=== PATIENT | female | born 1945 ===

== ENCOUNTER 2019-04-10 16:50 | Inpatient (IN) | payer MEDICARE, OTHER, SELFPAY ==
[~2019-04-10 16:50] MED LIST: Iopamidol-370 76% 500 ML 1 ML ONE
[2019-04-10 17:40] LABS: #Basophils 0.1 thou/uL (0.0-0.2); #Lymphocytes 1.4 thou/uL (1.20-3.40); #Neutrophils 7.2 thou/uL (1.40-6.50); %Basophils 0.7 % (0.0-1.0); %Eosinophils 0.3 % (0.0-10.0); %Lymphocytes 14.7 % (21.0-51.0); %Monocytes 10.1 % (0.0-10.0); %Neutrophils 74.3 % (42.0-75.0); Hemoglobin 10.8 g/dL (12.0-16.0); Mean Corpuscular HGB CONC 31.7 g/dL (32.0-36.0); Mean Corpuscular Hemoglobin 28.6 pg (27.0-31.0); Mean Corpuscular Volume 90.2 fL (78.0-98.0); Mean Platelet Volume 7.5 fL (7.4-10.4); Platelet Count 333 thou/uL (130-400); RBC Distribution Width 14.3 % (11.5-14.5); Red Blood Cell (RBC) Count 3.79 mill/uL (4.20-5.40); White Blood Cell (WBC) Count 9.7 thou/uL (4.8-10.8)
[2019-04-10] MEDS ORDERED: cefTRIAXone\\ROCEPHIN 2 GM VIAL ONE (17:41)
[2019-04-10] MEDS ORDERED: Clindamycin/D5W 900 mg/50 ml Premix Bag ONE (17:41)
[2019-04-10] MEDS ORDERED: Sodium Chloride 0.9% 100 ML ONE (17:41)
[2019-04-10 17:51] LABS: ALT (SGPT) 9 U/L (8-55); AST (SGOT) 21 U/L (5-34); Albumin 3.6 g/dL (3.4-4.8); Alkaline Phosphatase 72 U/L (40-110); Anion Gap 16 mmol/L (10-20); BUN (Urea Nitrogen) 13 mg/dL (9.8-20.1); Bilirubin, Total 0.4 mg/dL (0.2-1.2); CRP (Inflammatory) 2.84 mg/dL (= or < 0.5); Calc. Creatinine Clearance 0 mL/min (70-130); Carbon Dioxide 22 mmol/L (23-31); Chloride 104 mmol/L (98-107); Estimated GFR-MDRD 48; Globulin 3.9 g/dL (2.4-3.5); Glucose 107 mg/dL (83-110); Magnesium 1.8 mg/dL (1.6-2.6); Potassium 3.8 mmol/L (3.5-5.1); Protein, Total 7.5 g/dL (6.0-8.3); Sodium 138 mmol/L (136-145)
--- NOTE | 2019-04-10 18:13 | RAD ---
Portable frontal chest radiograph: 04/10/2019 COMPARISON: 12/26/2004 HISTORY: Shortness of breath with cough FINDINGS: There is enlargement of the cardiac silhouette and pulmonary vascular congestion. There is dense opacity in the right perihilar region and right lung base with obscuration of the right heart border and right hemidiaphragm. IMPRESSION: Prominent pleural and parenchymal opacity in the right lung base suggest infectious pneum onitis/aspiration. Recommend short-term follow-up radiograph of the chest following treatment to document resolution.
[2019-04-10 18:14] LABS: CKMB 1.9 ng/mL (0-6.6)
--- NOTE | 2019-04-10 18:45 | CON ---
DATE OF CONSULTATION: 04/10/2019 CHIEF COMPLAINT: Right chest wall mass. HISTORY OF PRESENT ILLNESS: This is a 73-year-old female, who notes a history of a progressively enlarging open wound to her right lateral chest wall and axilla that been present for 6 months. She states that Dr. Russ had removed something benign on the right breast several years ago. However, this started as a small sore near her nipple. She has been neglecting this. Her family did know about it. They brought her to the hospital today for failure to thrive. She notes no significant pain in the area unless she touches it. She has noticed less urinations in the last few days, but no fevers or chills. She has no abdominal pain. She notes chronic swelling to her right arm. She has seen Dr. Hagen previously for NC and her primary care physician is Dr. Aureliano Correia, although she has seen neither of them recently. PAST MEDICAL HISTORY: Hypertension, CAD, NC, CHF. PAST SURGICAL HISTORY: Right breast. MEDICATIONS: Medicines taken daily. She takes lisinopril, hydrochlorothiazide, Coreg, statin, otherwise unknown. ALLERGIES: NO KNOWN DRUG ALLERGIES. SOCIAL HISTORY: She is a daily smoker. No alcohol or other drugs . REVIEW OF SYSTEMS: 10 system review of system is otherwise negative unless described above. PHYSICAL EXAMINATION: VITAL SIGNS: Her blood pressure is initially 100/60, but it drops in the 60 systolic as I was in the room, seeing her. HEENT: Sclerae are anicteric. Oropharynx clear. NECK: No lymphadenopathy. CHEST: Coarse breath sounds bilateral. HEART: Increased rate, regular rhythm without murmur. ABDOMEN: Soft, nontender. EXTREMITIES: 2+ pitting edema in bilateral lower extremities, 2+ pitting edema in right upper extremity which is swollen all the way to the axilla. BREAST: Reveals no left breast mass. No left axillary lymphadenopathy. There is an open large necrotic wound to the right chest wall. There are pockets of purulence, although none of these were deep. She is missing her nipples secondary to the open wound. This goes all the way into her right axilla, it feels hard, so true lymphadenopathy cannot be appreciated. LABORATORY DATA: White blood cell count is 9, hemoglobin 10, platelet count is 333. Sodium 138, potassium 3.8. LFTs normal. Albumin 3.6, creatinine 1.11. ASSESSMENT: 1. 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 2. Coronary artery disease. 3. Congestive heart failure. 4. History of myocardial infarction. 5. Tobacco abuse. PLAN: There is no urgent need for operative debridement of this. I recommended full sepsis workup by the primary team, admission to Medicine. I will perform core needle biopsy at the bedside in the next few days and then we will arrange for Oncology to see her as well. I recommended CT chest to further assess this axillary area and the thorax. Job ID: [id number]
--- NOTE | 2019-04-10 18:49 | CT ---
CT of the chest, abdomen, and pelvis: 04/10/2019 HISTORY: Pitting infection of the left chest TECHNIQUE: Axial CT imaging at 5 mm intervals from the thoracic inlet through the pubic symphysis wit h IV contrast. Coronal and sagittal reformatted imaging obtained. FINDINGS: There is a very large irregularly marginated lobulated ulcerating mass lesion associated wi th the right breast extending into the right axillary region, likely involving the lateral aspect of the right pectoralis musculature. This is likely on the basis of an aggressive ulcerated right tanner ast cancer. Superimposed infection cannot be excluded. Areas of soft tissue mass density along the margins of this ulcerated mass measure up to 5 cm in transverse dimension and up to 6.8 cm in AP dime nsion. There is a low-density mass within the left breast as well, best seen on image 19, measuring 2.1 cm in transverse dimension. No axillary lymphadenopathy is noted on the left. Mass is inseparable from the ulcerated lateral right breast mass extend into the right axillary region suggesting probable associated right axillary adenopathy. There is a moderate-sized right pleural effusion. Bilateral pulmonary parenchymal masses are noted. L eft upper lobe mass on image 11 measures 1.1 cm and on image 21 measures 2.1 cm. Mass within the lateral aspect of the left lower lobe on image 26 measures 2 cm. Right lower lobe demonstrates partia l consolidation/collapse. Right upper lobe pulmonary nodules are noted measuring up to 1.2 cm. Partial consolidation/collapse of right middle lobe noted. There is extensive atherosclerotic calcification of the coronary arteries as well as the aortic arch and descending thoracic aorta. The osseous structures of the chest demonstrate no discrete lytic or blastic bone lesion. No free intraperitoneal air or fluid is seen. Low-density lesion noted within left lobe of liver on image 46 measuring 5 mm, too small to character ize. Similar 8 mm hypodense lesion noted within left lobe of liver on image 59. The gallbladder, spleen, pancreas, adrenal glands, and kidneys demonstrate no acute findings. There is a nonspecific a drenal mass on the left measuring 1.2 cm. Subcentimeter hypodensities are noted within the left kidney, too small to characterize. There is diverticulosis of the sigmoid colon with no evidence for diverticulitis. No evidence for bow el obstruction. There is extensive atherosclerotic calcification of the abdominal aorta and its branches. No abdominal or pelvic lymphadenopathy. Osseous structures of abdomen/pelvis demonstrate multilevel prominent spinal degenerative change. No discrete lytic or blastic bone lesion. IMPRESSION: Huge irregularly marginated ulcerated mass of right breast extending into right axillary region suggesting right breast malignancy. Nonspecific left breast lesion. Moderate size right pleural effusion, suspicious for malignant effusion. Bilateral pulmonary nodules concerning for malig gerald. Whole body PET scan advised. Dr. Carlin made aware 6:45 PM 04/10/2019.
[2019-04-10] MEDS ORDERED: Ondansetron PF 4 MG/2 ML Vial IVP PRN (19:42)
--- NOTE | 2019-04-10 21:40 | HP ---
CHIEF COMPLAINT: "My children did not like the swelling and open wound in my breast." HISTORY OF PRESENT ILLNESS: A 73-year-old female with history of coronary artery disease and stent placement, hypertension, dyslipidemia, who presents to the emergency room with the above complaint. The patient notes for six months or longer, she has had an open wound on her right breast that drained clear or bloody fluid. She has had associated right arm swelling over the past month, bilateral leg swelling, and shortness of breath with exertion while walking over the past month. She does note weight loss over the past year estimates one size in her jeans. She states this has not been evaluated in the outpatient setting due to a lack of insurance. The patient denies any fevers, nausea, vomiting, or abdominal pain. She does report chills, an upset stomach last night. She discontinued her usual blood pressure medications, she states they make her blood pressure to go too low. \\ In the emergency room patient found to have an ulcerated right breast mass that was evaluated by General Surgery, as well as CT imaging, and concerning for malignancy with a right pleural effusion. She was treated with 2 g vancomycin, 900 mg clindamycin, 2 g of Rocephin, and approximately 2 L of normal saline, and hospitalist called for admission. ALLERGIES: NO KNOWN DRUG ALLERGIES. CURRENT MEDICATIONS: The patient denies taking anything over the past month, but states before that she was on, 1. Carvedilol 25 mg two tablets b.i.d. 2. Hydrochlorothiazide 25 mg daily. 3. Lisinopril 20 mg daily. 4. Rosuvastatin 20 mg at bedtime. PAST MEDICAL HISTORY: 1. Coronary artery disease with history of stent placement, followed by Dr. Hagen , by chart review history of MN and CHF. 2. Dyslipidemia. 3. Hypertension. PAST SURGICAL HISTORY: 1. Right breast lump removed that she reports was in the distant past and noncancerous. 2. Coronary stents. SOCIAL HISTORY: The patient uses 3 to 5 cigarettes per day, denies alcohol or drugs, she lives alone, and reports her children are her surrogate decision makers. She reports full code. REVIEW OF SYSTEMS: Positive for the right arm swelling, bilateral leg swelling, upset stomach last night, chills for 3 days. All remaining review of systems are reviewed and negative. PHYSICAL EXAMINATION: VITAL SIGNS: Blood pressure 124/87, pulse 101, respirations 28, sats 97% on room air, and temp 98.1. GENERAL: Awake, alert, responsive, in no apparent distress, easily short of breath with movement in the bed or with speaking. HEENT: Her pupils are equal and round. Oral mucosa is pink and moist. NECK: Supple, nontender. LYMPHATICS: No palpable cervical or supraclavicular lymphadenopathy. LUNGS: Clear to auscultation with decreased breath sounds at the right base. No audible wheezing, rhonchi, or rales. HEART: Normal S1, S2. Tachycardic with frequent PVCs on telemetry. No significant murmurs. ABDOMEN: Soft with present bowel sounds. Nontender and nondistended. EXTREMITIES: She has significant 3+ pitting edema in her bilateral lower extremities, significant edema in her right upper extremity. SKIN: Ulcerated lesion of the right breast that is currently packed with gauze. NEUROLOGIC: No focal deficits. PSYCH: Appears euthymic. VASCULAR: 2+ dorsalis pedis pulses. LABORATORY DATA: Labs are reviewed. CBC 9.7, 10.8, 34.2, 333. Renal panel 138, 3.8, 104, 22, 13, 1.1, 107. Lactic acid 3.7. LFTs; T bilirubin 0.4, AST 21, ALT 9, alkaline phosphatase 72, total protein 7.5 , and albumin 3.6. BNP 792. CRP 2.84. Troponin 0.084. EKG is personally reviewed sinus rhythm with Q-waves consistent with a history of an inferior infarct, abnormal R-wave progression. On telemetry, frequent PVCs. Chest x-ray shows prominent pleural and parenchymal opacity in the right lung base, suggesting infectious pneumonitis or aspiration. CT scan shows a huge irregularly marginated ulcerated mass of the right breast extending into the right axilla suggesting right malignancy, nonspecific left breast lesion, moderate right side pleural effusion suspicious for malignant effusion, bilateral pulmonary nodules concerning for malignancy. IMPRESSION: 1. Ulcerated mass of the right breast with extension into the axilla, pulmonary nodules, right pleural effusion, all concerning for malignancy/metastatic disease. 2. Possible sepsis with elevated heart rate, elevated respiratory rate, and open draining breast wound. 3. History of hypertension, off her medications. 4. Tachycardia with frequent premature ventricular contractions. 5. Anemia of uncertain chronicity. 6. Elevated lactic acid, likely secondary to #1. 7. Tobacco abuse. 8. Indeterminate troponin. 9. Right UE and bilateral LE edema. PLAN: 1. Admission to the hospital. 2. General Surgery has evaluated the patient with plan for biopsy over the next few days, as well as consultation for Oncology. 3. We will continue antibiotics with what was initiated in the emergency room, vancomycin, Rocephin, and clindamycin. 4. IV fluid hydration, low rate as the patient does have lower extremity and right upper extremity edema. 5. Heart healthy diet. 6. Due to the tachycardia, we will initiate a low dose carvedilol and titrate to effect. Monitor on telemetry. 7. The patient has been off aspirin for over a month. We will hold on initiating this for now. 8. Vancomycin dosing per pharmacy. 9. Nicotine replacement by patch. 10. Deep vein thrombosis prophylaxis. We will use heparin, discontinue if significant bleedling from chest. 11. GI prophylaxis, not indicated. The patient will be written for a diet. 12. Code status is full. Surrogate decision makers are the patient's children who are present in the room. 13. The patient is aware of the concern that this is malignancy, the plan of care, the coverage of antibiotics. Her and family demonstrate understanding and agree. There were no questions or further needs at the end of evaluation. She is at high risk given age and current presentation. Job ID: [id number] MTDD
[2019-04-11 00:29] VITALS: BMI 29.2
[2019-04-11 00:43] LABS: CKMB 2.2 ng/mL (0-6.6)
[2019-04-11] MEDS ORDERED: Clindamycin/D5W 900 mg/50 ml Premix Bag ONE ×2 (02:16→09:43)
[2019-04-11 02:19] LABS: Bacteria/HPF None Seen HPF (None Seen); Bilirubin Negative (Negative); Blood, Urine Negative (Negative); Clarity Clear (Clear); Glucose, Urine (Dipstick) Normal (Negative); Leukocyte Negative Leu/uL (Negative); Mucous/LPF Rare LPF (<2+); Nitrite Negative (Negative); Protein, Urine (Dipstick) 50 mg/dL (Neg-Trace); Squamous Epithelial 0-3 HPF (0-3); Urobilinogen Normal mg/dL (Less than 2); WBC/HPF 0-3 HPF (0-3)
[2019-04-11] MEDS: Clindamycin/D5W 900 MG in Premix Bag 1 BAG IVPB SCH ×3 (02:22→18:15)
[2019-04-11 03:19] LABS: #Eosinphils 0.1 thou/uL (0.0-0.7); #Lymphocytes 1.3 thou/uL (1.20-3.40); #Monocytes 0.9 thou/uL (0.11-0.59); %Basophils 0.4 % (0.0-1.0); %Eosinophils 1.2 % (0.0-10.0); %Lymphocytes 17.4 % (21.0-51.0); %Monocytes 12.3 % (0.0-10.0); %Neutrophils 68.6 % (42.0-75.0); Hemoglobin 9.9 g/dL (12.0-16.0); Mean Corpuscular HGB CONC 30.8 g/dL (32.0-36.0); Mean Corpuscular Hemoglobin 27.7 pg (27.0-31.0); Mean Corpuscular Volume 90.2 fL (78.0-98.0); Mean Platelet Volume 8.3 fL (7.4-10.4); Platelet Count 235 thou/uL (130-400); RBC Distribution Width 14.4 % (11.5-14.5); Red Blood Cell (RBC) Count 3.56 mill/uL (4.20-5.40); White Blood Cell (WBC) Count 7.3 thou/uL (4.8-10.8)
[2019-04-11 03:41] LABS: Anion Gap 16 mmol/L (10-20); BUN (Urea Nitrogen) 10 mg/dL (9.8-20.1); Calc. Creatinine Clearance 72 mL/min (70-130); Calcium 8.2 mg/dL (7.8-10.44); Carbon Dioxide 15 mmol/L (23-31); Chloride 112 mmol/L (98-107); Estimated GFR-MDRD 67; Glucose 102 mg/dL (83-110); Sodium 139 mmol/L (136-145)
--- NOTE | 2019-04-11 05:13 | PDOC.EVN ---
Event Note - Event Note Event Note: Adding an order for ultrasound of both legs and RUE to evaluate for DVT given the significant edema and new presumed dx of metastatic cancer.
--- NOTE | 2019-04-11 09:09 | ULT ---
EXAM: Bilateral lower extremity venous ultrasound HISTORY: Bilateral lower extremity pain and edema COMPARISON: None TECHNIQUE: Multiplanar grayscale and color Doppler images were obtained in a bilateral lower extremit y venous ultrasound. Spectral analysis of the Doppler waveforms were performed. FINDINGS: The bilateral common femoral vein, profunda femoral veins, superficial femoral veins, and p opliteal veins are normal in appearance without visible thrombus. These vessels demonstrate normal compression, flow, and augmentation. The bilateral posterior tibial veins and greater saphenous veins are patent without evidence of throm bus. There is a right Briones's cyst measuring 3.4 cm in greatest dimension. IMPRESSION: 1. No evidence of DVT. 2. Right Briones's cyst
--- NOTE | 2019-04-11 09:11 | ULT ---
EXAM: Right upper extremity venous ultrasound HISTORY: Right upper extremity edema COMPARISON: None TECHNIQUE: Multiplanar grayscale and color Doppler images were obtained in a right upper extremity ve nous ultrasound. Spectral analysis of the Doppler waveforms were performed. FINDINGS: The internal jugular vein demonstrates normal compression and flow without evidence of thrombus. The subclavian vein demonstrates normal flow and augmentation without evidence of thrombus. The axillary vein shows no evidence of thrombus. There appears to be nonocclusive thrombus in the bra chial vein The venous structures distal to the elbow are not well visualized. The cephalic and basilic veins are patent. There is an IV in the cephalic vein in the antecubital fos sa. IMPRESSION: Nonocclusive thrombus in the brachial vein
[2019-04-11] MEDS: Heparin 5,000 UNITS/ML VIAL SC SCH ×3 (09:16→20:42)
[2019-04-11] MEDS: Carvedilol 3.125 MG TAB PO SCH ×2 (09:30→18:12)
[2019-04-11] MEDS ORDERED: Furosemide 40 MG/4 ML VIAL SLOW IVP SCH (15:45)
[2019-04-11] MEDS: Sodium Chloride 0.9% 1,000 ML IV SCH ×2 (16:06)
[2019-04-11] MEDS: Nicotine 14 MG PATCH TD SCH ×2 (16:06→20:51)
--- NOTE | 2019-04-11 18:06 | PDOC.HOSPP ---
- Subjective Encounter Date: 04/11/19 Encounter Time: 18:06 Subjective: cc: f/u for sepsis, ulcerating right chest wall mass, shortness of breath subjective: patient is new to me. seen and examined at bedside in IMCU. offers no acute complaints. reports she was brought to hospital by son for shortness of breath. notes 6 month history of right chest wall lesion that worsened in past 2 months with ulceration and no pain, but burning. reports worsening RUE swelling for past 1 week. reports worsening bilateral lower extremity swelling for past several weeks. states she has been depressed because her employer terminated her without reason in 2018 and she was not aware of waiting period before starting medicare. notes dropping 1 pant size recently. noted bacteremia with gram positive and gram negative organisms. nurse reports normotensive blood pressures but decreased urine output with raines in place. reports NPO order for today was cancelled and no plans for surgical intervention today. - Objective Vital Signs & Weight: Weight Weight 164 lb 15.903 oz Result Diagrams: 04/11/19 03:13 04/11/19 03:13 Hospitalist ROS - Review of Systems Other: ROS: pertinent positive per subjective; remainder ROS negative - Medication Medications: Active Medications Generic Name Dose Route Start Last Admin Trade Name Freq PRN Reason Stop Dose Admin Carvedilol 3.125 mg 04/11/19 08:00 04/11/19 09:30 Coreg PO 3.125 mg BID-WM COLT Administration Heparin Sodium (Porcine) 5,000 units 04/10/19 21:00 04/11/19 16:06 Heparin SC Not Given BID COLT Clindamycin Phosphate/Dextrose 50 mls @ 100 mls/hr 04/11/19 02:00 04/11/19 09 :30 900 mg/ Device IVPB 50 mls 0200,1000,1800 COLT Administration Sodium Chloride 1,000 mls @ 50 mls/hr 04/10/19 19:45 04/11/19 16:06 Normal Saline 0.9% IV Not Given .Q20H COLT Nicotine 14 mg 04/10/19 21:00 04/11/19 16:06 Nicoderm Patch TD Not Given Q24HR COLT Sodium Chloride 10 ml 04/11/19 09:00 04/11/19 09:30 Flush - Normal Saline IVF 10 ml Q12HR COLT Administration - Exam General Appearance: awake alert Eye: PERRL, anicteric sclera ENT: normocephalic atraumatic, no oropharyngeal lesions Neck: supple Heart: RRR, no murmur Respiratory: tachypneic Respiratory - other findings: decreased inspiratory effort, decreased basilar breath sounds Gastrointestinal: soft, non-tender, non-distended Extremities: 2+ LE edema Extremities - other findings: RUE Pitting edema and lymphedema Skin - other findings: ulcerated malodrous mass on right chest wall with gauze/ drainage Neurological: cranial nerve grossly intact, normal sensation to touch, no weakness Musculoskeletal: normal tone, normal strength Psychiatric: normal affect, normal behavior, A&O x 3 Hosp A/P - Plan ulcerated right chest wall mass. concerning for metastatic breast cancer. await tissue biopsy for confirmation. surgeon consulted for possible debridement and biopsy. consult wound care. noted CT panscan concerning for possible metastatic lesions. sepsis due to bacteremia from ulcerated right chest wall mass. consult ID. blood cultures noted with GPC and Proteus spp. await speciation. started on IV vancomycin, IV rocehpin, and IV clindamycin. volume overload. possibly due to CHF exacerbation and lymphedema. stop IVF. elevated BNP noted. check TTE. start IV lasix. lower extremity dopplers negative for DVT. upper extremity with nonocclusive thrombus in brachial vein. moderate right pleural effusion. possibly malignant. patient may benefit from diagnostic thoracentesis. defer to pulmonary. Lactic acidosis resolved RUE nonocclusive brachial vein DVT. hold anticoagulation for now until surgical evaluation complete CAD with remote stenting. patient not on antiplatelet agent. history hypertension. blood pressures initially hypotensive but now normotensive. deconditioning. consult PT and OT. nicotine dependence. patient will require cessation counseling. DVT px: LMWH code status: full code Dispo: continue inpatient monitoring
[2019-04-11] MEDS: cefTRIAXone\\ROCEPHIN 2 GM in Sodium Chloride 0.9% 100 ML IVPB SCH (18:12)
[2019-04-11] MEDS: Vancomycin HCl 1.25 GM in Sodium Chloride 0.9% 250 ML 250 ML IVPB SCH (20:41)
[2019-04-11] MEDS: Acetaminophen 325 MG TAB PO PRN (22:47)
[2019-04-12] MEDS: Clindamycin/D5W 900 MG in Premix Bag 1 BAG IVPB SCH ×3 (01:49→17:50)
[2019-04-12 04:19] LABS: Eosinophils 1 % (0-10); Lymphocytes 13 % (21-51); MDiff Complete? YES; Mean Corpuscular HGB CONC 31.4 g/dL (32.0-36.0); Mean Corpuscular Hemoglobin 29.3 pg (27.0-31.0); Mean Corpuscular Volume 93.2 fL (78.0-98.0); Monocytes 11 % (0-10); Neutrophil 75 % (42-75); Platelet Count 213 thou/uL (130-400); Platelet Morphology Comment Appears Adequate; RBC Distribution Width 14.6 % (11.5-14.5); Red Blood Cell (RBC) Count 3.08 mill/uL (4.20-5.40); White Blood Cell (WBC) Count 6.6 thou/uL (4.8-10.8)
[2019-04-12 04:25] LABS: Anion Gap 13 mmol/L (10-20); BUN (Urea Nitrogen) 11 mg/dL (9.8-20.1); Calc. Creatinine Clearance 54 mL/min (70-130); Calcium 8.2 mg/dL (7.8-10.44); Carbon Dioxide 20 mmol/L (23-31); Chloride 107 mmol/L (98-107); Estimated GFR-MDRD 48; Glucose 102 mg/dL (83-110); Potassium 3.8 mmol/L (3.5-5.1); Sodium 136 mmol/L (136-145)
[2019-04-12] MEDS ORDERED: Lidocaine 1% w/Epinephrine 1:100K 20 ML VIAL ONE (07:55)
[2019-04-12] MEDS ORDERED: FLU VACC TS2019-20(65YR UP)/PF 180 MCG/0.5 ML SYRINGE IM ONE (09:00)
[2019-04-12] MEDS ORDERED: Prevnar 13-Val Conj/PF 0.5 ML SYRINGE IM ONE (09:00)
[2019-04-12] MEDS: Heparin 5,000 UNITS/ML VIAL SC SCH ×2 (09:26→21:04)
--- NOTE | 2019-04-12 11:32 | PDOC.HOSPP ---
- Subjective Encounter Date: 04/12/19 Encounter Time: 11:45 Subjective: cc: f/u for ulcerating right chest wall mass, shortness of breath subjective: Patient seen and examined at bedside this morning. Son and daughter at bedside. Patient feels better and notes for lower extremity edema and right upper extremity edema is improved. Feels short of breath but improved when sitting upright. Offers no other acute complaints. Nursing staff notes no acute events. NOTED: 1 of 2 blood cultures CONS, breast culture proteus spp. - Objective Vital Signs & Weight: Vital Signs (12 hours) Temp Pulse Ox 04/12/19 10:25 97.3 F L 04/12/19 08:00 99 04/12/19 07:16 97.7 F 04/12/19 03:19 97.2 F L 04/11/19 23:34 97.6 F Weight Weight 164 lb 15.903 oz Most Recent Monitor Data Heart Rate from ECG 81 NIBP 75/41 NIBP BP-Mean 52 Respiration from ECG 27 SpO2 98 I&O: 04/11/19 04/12/19 04/13/19 06:59 06:59 06:59 Intake Total 1625 Output Total 1750 Balance -125 Result Diagrams: 04/12/19 03:15 04/12/19 03:15 Hospitalist ROS - Review of Systems Other: Pertinent positives noted as per subjective. Remainder ROS negative. - Medication Medications: Active Medications Generic Name Dose Route Start Last Admin Trade Name Freq PRN Reason Stop Dose Admin Acetaminophen 650 mg 04/10/19 19:42 04/11/19 22:47 Tylenol PO 650 mg Q6H PRN Administration Headache/Fever/Mild Pain (1-3) Carvedilol 3.125 mg 04/11/19 08:00 04/11/19 18:12 Coreg PO 3.125 mg BID-WM COLT Administration Heparin Sodium (Porcine) 5,000 units 04/10/19 21:00 04/12/19 09:26 Heparin SC Not Given BID COLT Ceftriaxone Sodium 2 gm/ 100 mls @ 200 mls/hr 04/11/19 17:00 04/11/19 18:12 Sodium Chloride IVPB 100 mls 1700 COLT Administration Clindamycin Phosphate/Dextrose 50 mls @ 100 mls/hr 04/11/19 02:00 04/12/19 09 :24 900 mg/ Device IVPB 50 mls 0200,1000,1800 COLT Administration Vancomycin HCl 1.25 gm/ Sodium 250 mls @ 166.667 mls/hr 04/11/19 20:00 20:41 Chloride IVPB 250 mls Q24HR@2000 COLT Administration Nicotine 14 mg 04/10/19 21:00 04/11/19 20:51 Nicoderm Patch TD Not Given Q24HR COLT Sodium Chloride 10 ml 04/11/19 09:00 04/12/19 09:29 Flush - Normal Saline IVF 10 ml Q12HR COLT Administration Hosp A/P - Plan MICROBIOLOGY: 1 of 2 blood cultures coag negative staph Breast culture: Proteus species ASSESSMENT AND PLAN ulcerated right chest wall mass. concerning for metastatic breast cancer. Status post surgical biopsy at bedside by surgeon. Status post diagnostic thoracentesis by pulmonology. Await pathology. Continue wound care. noted CT panscan concerning for possible metastatic lesions. possible sepsis due to inflammatory chest wall lesion. ID consulted. 1 of 2 blood cultures suggest coag negative staph suspected contaminant. Breast culture suggest Proteus species unclear true infectious etiology. patient was started on IV rocephin, clindamycin, and vancomycin in ER and continue for now. volume overload. possibly due to CHF exacerbation and lymphedema. Await TTE. Continue IV lasix 40 mg daily. discontinue raines catheter soon once more mobile. lower extremity dopplers negative for DVT. upper extremity with nonocclusive thrombus in brachial vein. possibly hypoxic respiratory failure due to moderate right pleural effusion and right chest wall mass with suspected metastatic lung lesions. pulmonology following. continue prn oxygen nasal canula. moderate right pleural effusion. possibly malignant. s/p diagnostic thoracentesis 04/12/19 by pulmonary. Lactic acidosis resolved. RUE nonocclusive brachial vein DVT. hold anticoagulation for now until surgical evaluation complete CAD with remote stenting. patient not on antiplatelet agent. history hypertension. blood pressures initially hypotensive but now normotensive. deconditioning. consult PT and OT. start oral dietary supplements. nicotine dependence. patient will require cessation counseling. DVT px: LMWH code status: full code Dispo: downgrade to telemetry if okay with consultants. consult case management for patient resources on outpatient assistance.
[2019-04-12] MEDS: Carvedilol 3.125 MG TAB PO SCH ×2 (12:51→17:48)
[2019-04-12] MEDS: HYDROcodone/Acetaminophen 7.5/325 mg Tablet PO PRN (14:23)
--- NOTE | 2019-04-12 14:48 | PRG ---
DATE OF SERVICE: 04/12/2019 SUBJECTIVE: Ms. Box still has pretty severe shortness of breath. Her CT results are noted. OBJECTIVE: VITAL SIGNS: O2 saturation is 98%. Her respiratory rate is 30, heart rate 92, blood pressure 97/56. CHEST: Coarse breath sounds, decreased on the right. HEART: Regular rate. ABDOMEN: Soft, nontender. BREASTS: Her right breast exam is unchanged with inflammatory breast cancer. Extensive right axillary hardness noted as well as right upper extremity swelling. IMAGING DATA: Ultrasound of right upper extremity revealed a brachial vein clot. CT scan shows effusion on the right, pneumonia on the right. ASSESSMENT: 1. Inflammatory breast cancer, neglected, now with large open wound. I performed core biopsy at the bedside today. Await those results. 2. Right-sided pleural effusion with extensive shortness of breath, requiring her to sit up straight in bed. PLAN: I have discussed with Dr. Iyer, who reviewed her CT scan with me. He will see her and offer recommendations for that effusion. I going to be out of town for the next week. I would recommend consulting Oncology as an inpatient once the pathology results come back from my biopsy. Because of her previous neglecting of this mass and difficulty getting back to the hospital and to outpatient appointments, likely should have some sort of plan in place before she is discharged. Dr. Pond has a round for me for the rest of the week for any issues. Until then, she is just getting wet-to-dry dressing changes on this wound daily. Job ID: [id number]
[2019-04-12 14:50] LABS: Fluid, pH - Pleural Fld 7.41 (7.60 - 7.66)
--- NOTE | 2019-04-12 15:09 | CON ---
DATE OF CONSULTATION: 04/12/2019 SERVICE: Pulmonary Medicine. REASON FOR CONSULTATION: Pleural effusion. HISTORY OF PRESENT ILLNESS: The patient is a very pleasant 73-year-old white female with past medical history significant for suspected breast cancer. The patient tends to keep things to herself. She did not tell her family about a fungating mass coming out of the breast. Ultimately, she presented to the emergency department. There was concern for infection. She was actually put in the hospital for that. That being said, became increasingly apparent that this mass was a fungating lesion. She is being treated for cellulitis/pneumonia. She has had increasing shortness of breath over a period of time. She has a cough, but not bringing up any sputum. Otherwise, there has been no change to her condition. PAST MEDICAL HISTORY: 1. Breast cancer, likely metastatic. 2. Coronary artery disease. 3. Hypertension. 4. Dyslipidemia. PAST SURGICAL HISTORY: 1. Right breast lumpectomy, remote. 2. Breast biopsy. 3. Percutaneous coronary intervention. SOCIAL HISTORY: She smokes a quarter pack of cigarettes on a daily basis, but prior to that, smoked a lot more. Denies any alcohol or illicit drug use. She has no exposure to chemicals, dust, asbestos, or tuberculosis. FAMILY HISTORY: Noncontributory. ALLERGIES: NO KNOWN DRUG ALLERGIES. MEDICATIONS: List of her inpatient medications was reviewed. No specific updates were made at this time. REVIEW OF SYSTEMS: General; head, ears, eyes, nose, throat; cardiovascular; respiratory; GI; ; musculoskeletal; neurologic; and skin are negative except as mentioned is the HPI. PHYSICAL EXAMINATION: VITAL SIGNS: Afebrile, pulse 92, blood pressure 97/56, respirations 30, saturation 98%, currently on 2 L nasal cannula. GENERAL: The patient is awake and alert, in no apparent distress. LUNGS: Decent air entry. Dependently, there are rhonchi on the right. There is decreased air entry there. No prolonged expiratory phase or wheezing appreciated. HEART: Normal rate. Regular. ABDOMEN: Soft, nontender, and nondistended. Bowel sounds are positive. MUSCULOSKELETAL: No cyanosis or clubbing. There is diffuse 1 to 2+ pitting throughout. NEUROLOGIC: Grossly nonfocal. LABORATORY DATA: WBC 6.6, hemoglobin 9.0 and downtrending, and platelets 213, 000. Creatinine 1.11 and up trending. Basic metabolic profile is otherwise unremarkable. Troponin is increasing to 0.07, CK-MB remains low. Lactate was originally 3.7 , but downtrended to 2.0. Liver function studies are unremarkable. Her BNP is elevated at 792. Urinalysis is unremarkable. Right breast is growing Proteus mirabilis, which is a pansensitive organism. She has 1/4 blood cultures growing coag- negative Staph, likely representing a contaminant. Urine culture is negative. IMAGING STUDIES: Ultrasound of bilateral lower extremities demonstrates no evidence of a pulmonary embolism. Right-sided Briones cyst is present. Vascular ultrasound demonstrates nonocclusive thrombus in the brachial vein. CT of the chest, abdomen, and pelvis demonstrates no evidence of a pulmonary embolism. There is an infiltrate in the right lower lobe with likely atelectasis of most of the right lower lobe. That being said, air bronchograms are appreciated. There is a moderate-sized pleural effusion on the right. Breast mass is present on the left. ASSESSMENT: 1. Pleural effusion, not otherwise specified. 2. Acute hypoxic respiratory failure. 3. Community-acquired pneumonia. 4. Breast mass, likely representing metastatic breast cancer. DISCUSSION AND PLAN: We will proceed with thoracentesis. This is going to be for both diagnostic and therapeutic purposes. We will see whether or not there is an infection that is based on whether or not cancer cells exist. Pulmonary will continue to follow while the patient remains inhouse for the time being. Current antibiotics should cover what we need to for a possible lung infection. 70 minutes have been devoted to this patient in various activities. I personally reviewed all imaging studies and laboratory data noted within this document. For fifty percent of this time, I was interacting with the patient at the bedside or coordinating care with the care team. For the remainder of the time I was immediately available to the patient in the hospital unit. Job ID: [id number] MTDD
[2019-04-12] MEDS ORDERED: Furosemide 40 MG/4 ML VIAL SLOW IVP SCH ×2 (15:15→17:45)
[2019-04-12 15:34] LABS: Pleural Fluid, Protein 3.7 g/dL
[2019-04-12 15:35] LABS: RBC Count-Automated (BF) 798 /cumm; WBC/Nucleated-Auto (BF) 3635 uL
[2019-04-12 15:46] LABS: BF Color Yellow; Body Fluid Source Pleural Fluid; Clarity Hazy (Clear); Tube # 3
[2019-04-12 15:49] LABS: BF Segmented Neutrophils 4 %; Cell Count Non Hematic 4 %; Lymphocytes 90 %
--- NOTE | 2019-04-12 16:44 | OP ---
DATE OF PROCEDURE: 04/12/2019 SERVICE: Pulmonary Medicine. PROCEDURE: Right-sided ultrasound-guided thoracentesis. CONSENT: The risks and benefits of the procedure were discussed with the patient. All questions were answered and alternative options explained. MEDICATIONS USED: Lidocaine 1% without epinephrine, 8 mL. PREOPERATIVE DIAGNOSES: 1. Acute hypoxic respiratory failure. 2. Pleural effusion, not otherwise specified. 3. Community-acquired pneumonia/pulmonary infiltrate. POSTPROCEDURE DIAGNOSES: 1. Acute hypoxic respiratory failure. 2. Pleural effusion, not otherwise specified. 3. Community-acquired pneumonia/pulmonary infiltrate. DESCRIPTION OF PROCEDURE: A time-out was performed by the procedure team and patient. The patient was positively identified using name and date of . The procedure site was marked. Vital sign monitoring was accomplished by noninvasive hemodynamic monitoring, pulse oximetry, and telemetry. In the seated position, the right posterior hemothorax was examined using ultrasound probe. The diaphragm and pleural fluid were easily identified. The skin was prepped and draped in sterile fashion and anesthetized with 1% lidocaine without epinephrine. A finder needle was inserted in the pleural space with return of minimally opaque yellow fluid. A pleural drainage catheter was inserted in the same location and a total quantity of 1000 mL of pleural fluid was withdrawn by syringe pump technique. A sample was sent for analysis. Evacuation of fluid was terminated because the because I arrived at minus 20 cm of pleural fluid. At the end of the procedure, the intact catheter was withdrawn on exhalation and a sterile dressing was applied. She had stable vitals throughout the entire procedure. ESTIMATED BLOOD LOSS: Negligible. COMPLICATIONS: None. Job ID: [id number]
--- NOTE | 2019-04-12 17:33 | CON ---
DATE OF CONSULTATION: 04/12/2019 REASON FOR CONSULTATION: Inflammatory necrotic mass, right breast with pleural effusion. HISTORY OF PRESENT ILLNESS: A 73-year-old history of chronic smoking, hyperlipidemia, and hypertension, who has had a progressively worsening necrotic right breast and axillary mass, which she noticed for the past 6 months at least. The patient lives by herself close to the hospital and family members are in another city and she never disclosed to them this new finding and pretty much let the progress, was not planning to go to medical care for it until the family came to visit during [place] and convinced her to go see a doctor. She was brought to the emergency room, has been admitted. Dr. Mckeon did a biopsy of the likely malignancy. Dr. Iyre has removed some pleural fluid for assessment. She is basically comfortable in bed at this time and denies any headaches, visual symptoms, sore throat, odynophagia, or dysphagia. No back pain. Mild dyspnea. Mild pain at the site of the mass. No abdominal pain or diarrhea. No genitourinary symptoms. No joint symptoms or neurological symptoms. PAST MEDICAL HISTORY: Hyperlipidemia and hypertension. She has a history of lumpectomy many years ago, cardiac stent, tonsillectomy, and depression. SOCIAL HISTORY: Current smoker. Lives alone in [place]. ALLERGIES: NONE. CURRENT MEDICATIONS: 1. Coreg. 2. Ceftriaxone. 3. Clindamycin. 4. Lasix. 5. Heparin. 6. Zofran. 7. Vancomycin. ALLERGY HISTORY: Negative. PHYSICAL EXAMINATION: VITAL SIGNS: T-max 98.4, blood pressure 97/56, pulse 92, respirations 24, pulse 92, and O2 saturation 98. SKIN: Shows the necrotic mass in the right breast axillary region, which seems to be penetrating into the soft tissues, it is very close probably to the vascular structures. There is a rim of infiltrated skin around this region, which likely represented the advancing edges of the tumor. The base of this area has some regions of necrosis, others with granulation tissue. The patient has a peripheral IV access and is voiding with an indwelling Dobbins catheter. No other areas of lymphadenopathy are noted. HEENT: Ocular movements are conjugate. Sclerae white. Pupils are 2 mm and reactive. Nasal passages are normal. Ear exam normal. Oral cavity is not remarkable. NECK: Supple. No jugular vein distention. LUNGS: With diminished breath sounds on the right side. HEART: S1 and S2. Regular rate. ABDOMEN: Soft, mild wheezing in the dependent areas. ABDOMEN: Soft, not distended or tender. No ascites. No bladder distention. EXTREMITIES: No joint inflammatory activity. Lymphedema in the lower extremities and lymphedema in the right upper extremity with also likely edema from venous obstruction by the mass or plus-minus thrombus. Pulses 1+ in dorsalis pedis. She moves extremities with some limitation in right upper extremity from the inflammatory mass. GENERAL: She is awake and oriented, follows commands. LABORATORY DATA: White cell count 9.7 and now 6.6, hemoglobin 10.8, MCV 90, and platelets 333 with 74% neutrophils and 14% lymphocytes. Chemistry with a creatinine of 0.8 and sodium 139. Liver profile normal. Albumin 3.6 and total protein 7.5. CRP 2.8 and BNP 792. Urinalysis, 0 to 3 wbc's and 50 protein. Pleural fluid, pH was 7.41. I have one set of blood cultures with coagulase-negative Staph likely contaminant and there is a swab from the surface of the breast lesion with Proteus mirabilis, likely a surface contaminant. We have a chest, abdomen, and pelvis CT with marginated ulcerated mass right breast extending into the right axillary region, pleural effusion moderately-sized, bilateral pulmonary nodules likely metastatic malignancy. The abdominal compartment with low-density lesion in the left lobe of the liver, too small to characterize. ASSESSMENT: Progressive necrotic right breast mass lesion. There is associated likely metastatic lesions to both lungs. There is no evidence of deep vein thrombosis in the lower extremities and the brachial vein has a nonocclusive thrombus noted. DISCUSSION: This represents an inflammatory breast malignancy with metastases to lungs at least and I do not think that there is an evidence to suggest a superimposed infectious process that needs to be treated with antimicrobials at this time. Awaiting on the final results of the pleural fluid analysis, which probably will demonstrate malignant spread to the pleural space on right side. Job ID: [id number] MTDD
[2019-04-12] MEDS: cefTRIAXone\\ROCEPHIN 2 GM in Sodium Chloride 0.9% 100 ML IVPB SCH (17:44)
[2019-04-12] MEDS: Vancomycin HCl 1.25 GM in Sodium Chloride 0.9% 250 ML 250 ML IVPB SCH (20:46)
[2019-04-12 20:52] LABS: Vancomycin, Trough 14.1 ug/mL
[2019-04-12] MEDS: Nicotine 14 MG PATCH TD SCH (20:59)
[2019-04-12] MEDS: Acetaminophen 325 MG TAB PO PRN (22:58)
[2019-04-13] MEDS: Clindamycin/D5W 900 MG in Premix Bag 1 BAG IVPB SCH ×3 (02:35→22:30)
[2019-04-13] MEDS: Carvedilol 3.125 MG TAB PO SCH ×2 (08:30→18:51)
[2019-04-13 09:28] LABS: #Basophils 0.1 thou/uL (0.0-0.2); #Eosinphils 0.1 thou/uL (0.0-0.7); #Lymphocytes 1.1 thou/uL (1.20-3.40); #Monocytes 0.7 thou/uL (0.11-0.59); #Neutrophils 4.5 thou/uL (1.40-6.50); %Basophils 0.8 % (0.0-1.0); %Eosinophils 2.1 % (0.0-10.0); %Lymphocytes 17.1 % (21.0-51.0); %Monocytes 10.5 % (0.0-10.0); %Neutrophils 69.4 % (42.0-75.0); Hemoglobin 9.5 g/dL (12.0-16.0); Mean Corpuscular HGB CONC 29.6 g/dL (32.0-36.0); Mean Corpuscular Hemoglobin 27.9 pg (27.0-31.0); Mean Corpuscular Volume 94.2 fL (78.0-98.0); Mean Platelet Volume 8.2 fL (7.4-10.4); Platelet Count 241 thou/uL (130-400); RBC Distribution Width 14.6 % (11.5-14.5); White Blood Cell (WBC) Count 6.5 thou/uL (4.8-10.8)
[2019-04-13] MEDS ORDERED: Hydrocortisone Sod Succ/PF 250 mg/2 ml Vial SLOW IVP SCH (09:30)
[2019-04-13] MEDS: Heparin 5,000 UNITS/ML VIAL SC SCH ×2 (09:36→22:44)
[2019-04-13 09:46] LABS: Anion Gap 9 mmol/L (10-20); BUN (Urea Nitrogen) 12 mg/dL (9.8-20.1); Calc. Creatinine Clearance 66 mL/min (70-130); Calcium 8.1 mg/dL (7.8-10.44); Carbon Dioxide 26 mmol/L (23-31); Chloride 105 mmol/L (98-107); Estimated GFR-MDRD 61; Glucose 100 mg/dL (83-110); Magnesium 1.8 mg/dL (1.6-2.6); Phosphorus 3.5 mg/dL (2.3-4.7); Potassium 3.4 mmol/L (3.5-5.1); Sodium 137 mmol/L (136-145)
[2019-04-13 09:51] LABS: MDiff Complete? YES; Platelet Morphology Comment Appears Adequate; Polychromasia SLIGHT = 2-3 cells (100X) (0-2/hpf)
[2019-04-13] MEDS ORDERED: Hydrocortisone Sod Succ/PF 100 mg/2 ml Vial IVP SCH (10:00)
[2019-04-13] MEDS: Furosemide 40 MG/4 ML VIAL SLOW IVP SCH (10:36)
--- NOTE | 2019-04-13 14:43 | PDOC.EVN ---
Event Note - Event Note Event Note: [id number] Progress
--- NOTE | 2019-04-13 15:22 | PRG ---
DATE OF SERVICE: 04/13/2019 The patient is being followed for ulcerative right chest wall mass, shortness of breath, sepsis, and bacteremia. SUBJECTIVE: The patient is seen at bedside. Son also at the bedside. The patient's blood pressure continues to fluctuate, but remains on the low side. We have to hold blood pressure medicine and Lasix earlier today because of low blood pressure. Other than that, patient overall is feeling better, but feels weak. PHYSICAL EXAMINATION: VITAL SIGNS: Blood pressure is 108/66, pulse is 93, respiratory rate 20, temperature 96.5, pulse oximetry 98%. HEAD AND NECK: Normocephalic, atraumatic. NECK: Supple. CHEST: Few bibasilar crackles. HEART: S1, S2. Regular. ABDOMEN: Soft, nontender, bowel sounds present. NEUROLOGIC: Awake, alert, oriented. PSYCH: Unable to assess. EXTREMITIES: No clubbing, no cyanosis. REVIEW OF SYSTEMS: Review of 14 systems negative except what is mentioned in history of present illness. MEDICATIONS: Reviewed. LABORATORY DATA: Sodium 137, potassium 3.4, BUN is 12, creatinine 0.9. WBC 6.5, hemoglobin 9.5, platelets 241. ASSESSMENT AND PLAN: 1. Ulcerated right chest wall mass concerning for metastatic breast cancer, status post surgical biopsy, status post diagnostic thoracentesis by Pulmonary, awaiting pathology. 2. Possible sepsis. 3. Breast culture suggests Proteus species. The patient currently is on IV Rocephin, also she is receiving clindamycin and vancomycin, Infectious Disease consulted. 4. Congestive heart failure, possibly exacerbation, the patient is on Lasix, but it has been on hold today because of low blood pressure. 5. , continue p.r.n. oxygen nasal cannula. 6. Moderate right pleural effusion, possible malignant, status post diagnostic thoracentesis, awaiting pathology. 7. Lactic acidosis, resolved. 8. Right upper extremity nonocclusive brachial vein deep venous thrombosis. Anticoagulation is being hold until surgical evaluation is completed. 9. Coronary artery disease with stenting. 10. History of hypertension, hold blood pressure medications because the patient is being hypotensive. 11. Decondition. Consult PT and OT. 12. DVT prophylaxis appropriate. 13. Full code. DISPOSITION: Job ID: [id number]
[2019-04-13] MEDS: cefTRIAXone\\ROCEPHIN 2 GM in Sodium Chloride 0.9% 100 ML IVPB SCH (18:44)
[2019-04-13] MEDS ORDERED: Furosemide 20 MG/2 ML VIAL SLOW IVP SCH ×2 (20:30→20:45)
[2019-04-13] MEDS: Nicotine 14 MG PATCH TD SCH (22:31)
[2019-04-13] MEDS: Vancomycin HCl 1.25 GM in Sodium Chloride 0.9% 250 ML 250 ML IVPB SCH (22:43)
[2019-04-13] MEDS: Acetaminophen 325 MG TAB PO PRN (22:59)
[2019-04-14] MEDS: Clindamycin/D5W 900 MG in Premix Bag 1 BAG IVPB SCH ×3 (02:28→17:07)
--- NOTE | 2019-04-14 03:11 | CON ---
DATE OF CONSULTATION: INDICATION FOR CONSULTATION: This is a 73-year-old female, well known to me. I have followed her for many years. She has a history of underlying coronary artery disease, has undergone angioplasty and stent placement to the right coronary artery in 2000 with a 3.0 x 23 mm stent due to subtotal stenosis of the right coronary artery. At that time, she was found to have plaque in the other arteries and also had a severe decrease in left ventricular systolic function with ejection fraction approximately 20%. She has been admitted at this time due to a fungating right breast mass, which appears to be a malignancy, is somewhat suspicious also for being metastatic, for which she had an echocardiogram performed, which shows ejection fraction of 25% to 30% with moderate to severe left atrial dilatation and severe mitral valve regurgitation. These are not new findings. This is a chronic situation for this lady and we have actually had discussions on multiple occasions about possible AICD implant. She was opposed to this and has not had an implantation. She also has had discussions about starting her on Entresto or other medications for her cardiomyopathy and we tried to get her into a program, which would have been paid for by the company, but she said she was unable to have time to come to the office visits and she did not start the Entresto. She has continued to smoke unfortunately and still continues to smoke half a pack a day. Each time she has been seen in the office, we have advised her to stop smoking, but this was to no avail. She did undergo her last echocardiogram in the office in 2017 in October, which again showed an ejection fraction about 30% with moderate to severe mitral valve regurgitation and also left ventricular dilatation. She did have akinesis of the inferior posterior grover and at that time she again refused to undergo AICD implant. She has had an EKG, which showed normal sinus rhythm. She has had PVCs in the past and she has had an interventricular conduction abnormality. Her last cardiac catheterization was in 2008, at which time, the stent in the right coronary artery remained patent and she continued to have plaque in the left circumflex and the left anterior descending artery, but no flow-limiting disease is otherwise noted and ejection fraction at that time by cardiac catheterization was again 25% to 30%. At this time, she denies any chest discomfort as far as cardiac is concerned, but she does have some shortness of breath. She is feeling better now that she has had a thoracentesis and approximately 1 L of fluid apparently was drained off. PAST MEDICAL HISTORY: Significant for the coronary artery disease, cardiomyopathy. She has hypertension, hypercholesterolemia. She has had a tonsillectomy. She has had a tendon transplant on the left foot. She has had bilateral tubal ligations. She has had angioplasty and stent placement to the right coronary artery. ALLERGIES: NONE. MEDICATIONS: Prior to admission, I think she was not taking most of them. She was taking some of the diuretics, however, but had not been taking all of her medications. I believe she had been taking the Coreg. She was on Coreg 25 mg b.i.d. and also Crestor 20 mg a day for her hypercholesterolemia, and the Coreg was for cardiomyopathy, but she had stopped taking the Coreg due to hypotension and not feeling well, most likely due to decrease in the left ventricular systolic function and also possible underlying ischemia as well as progression of the pleural effusion. Her medications at this time include, 1. Rocephin. 2. Clindamycin. 3. Vancomycin. 4. She has a Nicoderm patch. 5. She is on Coreg 3.125 mg. 6. She is on furosemide 40 mg IV as well as subcu heparin. 7. She has been placed on p.r.n. medications. FAMILY HISTORY: Noncontributory to her admission at this time. SOCIAL HISTORY: She continues to smoke. There is no significant alcohol use. She recently stopped working for [employer] company here in [facility]. REVIEW OF SYSTEMS: GENERAL: She says that she has lost some weight. HEENT: She has no visual or HEENT complaints or changes. PULMONARY: She continues to have shortness of breath, which is an ongoing problem. CARDIOVASCULAR: She denied any chest pain or palpitations. GI: She had no nausea, vomiting, or diarrhea. She did have some loose stools a couple of days ago, but nothing significant. : She does not have any complaints of dysuria, polyuria, or hematuria unless she takes her Lasix, which then causes her to have increased urine output except for the last day before admission apparently the urine output had decreased, but she was not eating or drinking appropriately and most likely was somewhat dehydrated. MUSCULOSKELETAL: She continues to have ongoing edema. Mainly, she sleeps in a recliner at night and does not lie down and most of the time the legs are either hanging down or certainly not above the level of the heart. NEUROLOGIC: She denied any complaints of seizure or syncope. PHYSICAL EXAMINATION: GENERAL: Reveals a well-developed, well-nourished female, somewhat overweight, but in no acute distress. She is very pleasant. VITAL SIGNS: Her blood pressure was 114/75, respiratory rate is about 18 to 26, O2 saturations about 98% on 2 L, heart rate is 78 to 90 and shows a sinus rhythm. HEENT: Shows head to be normocephalic and atraumatic. Carotid pulses are present. I do not hear any bruits. CHEST: Has decreased breath sounds in the right base as would be expected from a pleural effusion. Otherwise, I do not hear rales or rhonchi. CARDIOVASCULAR: Reveals a regular rate at this time with occasional ectopy. She does have a systolic murmur at the apex. I did not hear any significant murmur at the lower sternal border. She also has a systolic murmur of the aortic area. ABDOMEN: Shows obesity with positive bowel sounds. She has a surgical dressing over the right breast area, most likely after the biopsy of the breast mass, I did not evaluate this, please refer to the other notes. EXTREMITIES: Lower extremities show 2 to 3+ lower extremity edema, the left being greater than the right. Pedal pulses are difficult to palpate so were popliteals, but this is also due to some obesity. NEUROLOGIC: I do not see any gross focal motor deficits at this time. LABORATORY DATA: Shows a sodium of 137, potassium was 3.4. Her chloride was 105 with bicarb of 26, BUN was 12, and creatinine 0.19. Blood sugar was 100. WBC was 6.5 with hemoglobin 9.5, hematocrit was 32, platelet count was 241,000. Troponin I was indeterminate at 0.084, decreased down to 0.59 and increased again up to 0.76. Echocardiogram as noted above. She did have an EKG today, which continues to show a right bundle-branch block with sinus rhythm. IMPRESSION: 1. Probable right breast fungating carcinoma most likely with metastasis according to the CT scans that have been performed. She may have some lung metastases as well as possible liver metastases. The biopsy from the breast is still pending, this is being dealt with by the surgical team. If she is found to be inoperable, then perhaps she would be able to undergo chemotherapy as an outpatient. However, she most likely does not have insurance for finances to have outpatient procedures or chemotherapy. 2. Cardiomyopathy, this had little change almost the last 19 years when she underwent stent placement in 2000, ejection fraction has remained at a low level. She has done relatively well. She has refused to undergo AICD implant and has not been compliant with follow-ups or attempt to try medications for her congestive heart failure or for the cardiomyopathy. She does continue to take her diuretics, however. 3. Hyperlipidemia, would consider continuing the cholesterol medications and statins. 4. History of tobacco abuse. She has never stopped smoking in the entire time that I have known her despite multiple discussions about stopping smoking. 5. Hypertension. At this time, she is hypotensive. We would agree with holding the medications. Would certainly hold the diuretics if necessary. She did appear to be somewhat dehydrated when she arrived and if the blood pressure continues to be low, then would certainly hold off on the beta blockers at this time. We will be more than happy to continue to follow this patient with you. She is obviously at high risk for any type of major procedures. However, she has done very well with ejection fraction in this 25% to 30% range for many years and by the last cardiac catheterization, which was in 2008, the stents had remained patent and they have been present for about eight years at that time, so I believe the coronary artery disease at this time appears to be stable. She denies any chest pain. We will continue to follow and monitor her with you throughout this hospitalization. Job ID: [id number]
[2019-04-14 04:07] LABS: Anion Gap 9 mmol/L (10-20); BUN (Urea Nitrogen) 15 mg/dL (9.8-20.1); Calc. Creatinine Clearance 67 mL/min (70-130); Calcium 8.6 mg/dL (7.8-10.44); Carbon Dioxide 30 mmol/L (23-31); Chloride 105 mmol/L (98-107); Estimated GFR-MDRD 62; Glucose 112 mg/dL (83-110); Potassium 3.8 mmol/L (3.5-5.1); Sodium 140 mmol/L (136-145)
[2019-04-14 07:52] LABS: #Basophils 0.1 thou/uL (0.0-0.2); #Eosinphils 0.1 thou/uL (0.0-0.7); #Lymphocytes 1.7 thou/uL (1.20-3.40); #Monocytes 0.8 thou/uL (0.11-0.59); #Neutrophils 4.2 thou/uL (1.40-6.50); %Basophils 0.9 % (0.0-1.0); %Eosinophils 1.3 % (0.0-10.0); %Lymphocytes 24.7 % (21.0-51.0); %Monocytes 12.1 % (0.0-10.0); Hemoglobin 9.7 g/dL (12.0-16.0); Mean Corpuscular HGB CONC 30.9 g/dL (32.0-36.0); Mean Corpuscular Hemoglobin 28.6 pg (27.0-31.0); Mean Corpuscular Volume 92.4 fL (78.0-98.0); Mean Platelet Volume 8.2 fL (7.4-10.4); Platelet Count 260 thou/uL (130-400); RBC Distribution Width 14.5 % (11.5-14.5); Red Blood Cell (RBC) Count 3.39 mill/uL (4.20-5.40); White Blood Cell (WBC) Count 6.9 thou/uL (4.8-10.8)
[2019-04-14] MEDS: Heparin 5,000 UNITS/ML VIAL SC SCH ×2 (08:05→20:54)
[2019-04-14] MEDS: Furosemide 40 MG/4 ML VIAL SLOW IVP SCH (08:05)
[2019-04-14] MEDS: Carvedilol 3.125 MG TAB PO SCH ×2 (08:06→17:07)
[2019-04-14] MEDS: Acetaminophen 325 MG TAB PO PRN ×2 (10:25→22:57)
--- NOTE | 2019-04-14 13:58 | PDOC.EVN ---
Event Note - Event Note Event Note: [id number] Dictated progress note
--- NOTE | 2019-04-14 14:19 | PRG ---
DATE OF SERVICE: 04/14/2019 SUBJECTIVE: The patient is being followed for shortness of breath, sepsis, chest wall mass ulcerated. The patient is seen at the bedside. Family at the bedside. Blood pressure remains on the low side around 90/60. The patient was seen by her telegraph printer mechanic, appreciate input. Overall, the patient is feeling better. OBJECTIVE: GENERAL: The patient is awake, alert. VITAL SIGNS: Blood pressure is 90/60, pulse is 83, respiratory rate is 20, temperature is 97. HEAD AND NECK: Normocephalic and atraumatic. Neck is supple. CHEST: Few bibasilar crackles. HEART: S1 and S2. Regular. ABDOMEN: Soft, nontender. Bowel sounds are present. NEUROLOGIC: Awake, alert, oriented. PSYCH: Unable to assess. EXTREMITIES: No clubbing or cyanosis. REVIEW OF SYSTEMS: Review of 14 systems negative except what is mentioned in the history of present illness. MEDICATIONS: Reviewed. LABORATORY DATA: Sodium 140, potassium 3.8, BUN is 15, creatinine 0.9. WBC 6.9, hemoglobin 9.7. ASSESSMENT AND PLAN: 1. Ulcerated right chest wall mass concerning for metastatic breast cancer, status post surgical biopsy, status post diagnostic thoracentesis by Pulmonary, awaiting pathology. 2. Possible sepsis. 3. Breast culture suggest Proteus species. The patient is currently is on IV Rocephin. She is also on vancomycin and clindamycin, Infectious Disease consulted. 4. Congestive heart failure, possible exacerbation. The patient has been on Lasix, but it has been on hold earlier because of low blood pressure. 5. Right pleural effusion, possibly malignant?, status post diagnostic thoracentesis, awaiting pathology. 6. Lactic acidosis, resolved. 7. Right upper extremity nonocclusive brachial vein thrombosis. Anticoagulation has been on hold until surgical evaluation is completed. 8. Coronary artery disease with stenting. 9. History of hypertension. Blood pressure now is on the low side. 10. Deconditioning. PT and OT consult. 11. Deep venous thrombosis prophylaxis as appropriate. CODE STATUS: The patient is full code. Job ID: [id number]
--- NOTE | 2019-04-14 15:43 | PRG ---
DATE OF SERVICE: 04/14/2019 SERVICE: Pulmonary Medicine. INTERVAL HISTORY: The patient is doing fine from respiratory standpoint. Breathing comfortably. No complaints of chest discomfort, nausea, or vomiting. Ever since the thoracentesis, her breathing is much improved. She got better rest today. When she is exerting herself, she still gets some benefit out of using the nasal cannula, but otherwise, has been going without it. PHYSICAL EXAMINATION: VITAL SIGNS: Afebrile, pulse 102, blood pressure 109/47, respirations 18, saturation 99%, currently on room air. GENERAL: The patient is awake and alert, in no apparent distress. LUNGS: Decent air entry. Dependent crackles are minimal. No prolonged expiratory phase or wheezing is appreciated. HEART: Normal rate and regular. ABDOMEN: Soft, nontender, nondistended. Bowel sounds are positive. MUSCULOSKELETAL: No cyanosis or clubbing. There is trace to 1+ pitting in the bilateral lower extremities. NEUROLOGIC: Grossly nonfocal. LABORATORY DATA: WBC 6.9, hemoglobin 9.7, and platelets 260,000. Basic metabolic profile is completely unremarkable other than a potassium of 3.8. Creatinine is stable at 0.9. Urinalysis is unremarkable. Thoracentesis fluid is consistent with a transudate. Vancomycin trough 14.1. Urine culture, blood culture x2, and body fluid culture all unremarkable. AFB smear is negative to date. IMAGING STUDIES: Echocardiogram demonstrates 25% to 30% ejection fraction with severe mitral regurgitation. ASSESSMENT: 1. Acute hypoxic respiratory failure, improved. 2. Pleural effusion, transudate on the right. 3. Community-acquired pneumonia, possible. 4. Breast mass, likely representing metastatic breast cancer. DISCUSSION AND PLAN: At this point, the patient's respiratory standpoint has improved significantly. I would encourage a 5-day course of antibiotics directed at lung related conditions. From a lung standpoint, things can be discontinued after that. I am doubtful that the pathology on the pleural fluid will be abnormal given that we are dealing with a fairly clear-cut transudate. Preventing, recurrent pleural effusions will require optimization of cardiac function, and avoiding salt and water through time. I will sign off at this time. If there is any additional questions or concerns, please give me a phone call. Job ID: [id number] [facility]
[2019-04-14] MEDS ORDERED: Potassium Chloride 20 MEQ TAB PO SCH (16:00)
[2019-04-14] MEDS: cefTRIAXone\\ROCEPHIN 2 GM in Sodium Chloride 0.9% 100 ML IVPB SCH (17:07)
[2019-04-14 19:19] LABS: Vancomycin, Trough 15.8 ug/mL
[2019-04-14] MEDS: Vancomycin HCl 1.25 GM in Sodium Chloride 0.9% 250 ML 250 ML IVPB SCH (20:55)
[2019-04-14] MEDS: Nicotine 14 MG PATCH TD SCH (20:55)
[2019-04-15] MEDS: Clindamycin/D5W 900 MG in Premix Bag 1 BAG IVPB SCH ×3 (01:43→18:25)
[2019-04-15] MEDS: Carvedilol 3.125 MG TAB PO SCH ×2 (08:25→17:35)
[2019-04-15] MEDS: Furosemide 40 MG/4 ML VIAL SLOW IVP SCH (08:35)
[2019-04-15] MEDS: Acetaminophen 325 MG TAB PO PRN ×3 (08:35→20:32)
[2019-04-15] MEDS: Heparin 5,000 UNITS/ML VIAL SC SCH ×2 (08:35→20:27)
--- NOTE | 2019-04-15 10:03 | PRG ---
DATE OF SERVICE: 04/15/2019 SERVICE: Pulmonary Medicine. INTERVAL HISTORY: The patient is doing fine from respiratory standpoint. She is breathing comfortably. No complaints of chest discomfort, nausea, or vomiting. Otherwise, she is returning to her usual state of health. PHYSICAL EXAMINATION: VITAL SIGNS: Afebrile, pulse 88, blood pressure 101/62, respirations 21, saturation 97% on 0.5 L nasal cannula. GENERAL: The patient is awake and alert, in no apparent distress. LUNGS: Decent air entry. Minimal crackles are present in the bibasilar regions. No prolonged expiratory phase is otherwise appreciated. HEART: Normal rate, regular. ABDOMEN: Soft, nontender, and nondistended. Bowel sounds are positive. MUSCULOSKELETAL: No cyanosis or clubbing. No pitting in the bilateral lower extremities. NEUROLOGIC: Grossly nonfocal. ASSESSMENT: 1. Acute hypoxic respiratory failure, resolved. 2. Pleural effusion, transudate on the right, pathology pending. 3. Community-acquired pneumonia, possible. 4. Breast mass, likely representing metastatic breast cancer. DISCUSSION AND PLAN: The patient is doing fine from respiratory standpoint. At this point, she is stable for transition out of the ICU to the medical unit. She has no further requirements for inpatient Pulmonary or Critical Care opinion. The likelihood that this is a malignant effusion is extraordinarily low given that this is a clear transudate. Please call with any additional questions or concerns through time. Job ID: [id number]
--- NOTE | 2019-04-15 11:50 | PDOC.CPN ---
- Subjective Date: 04/15/19 Time: 12:05 Interval history: The pt seen and examined. No overnight events. No cardiac complaints. - Objective Allergies/Adverse Reactions: Allergies Allergy/AdvReac Type Severity Reaction Status Date / Time No Known Allergies Allergy Unverified 04/10/19 19:54 Visit Medications: Current Medications Acetaminophen (Tylenol) 650 mg PO Q6H PRN PRN Reason: Headache/Fever/Mild Pain (1-3) Last Admin: 04/15/19 08:35 Dose: 650 mg Hydrocodone Bitart/Acetaminophen ([place] 7.5/325) 1 tab PO Q6H PRN PRN Reason: Mild Pain (1-3) Last Admin: 04/12/19 14:23 Dose: 1 tab Alprazolam (Xanax) 0.25 mg PO BIDPRN PRN PRN Reason: Anxiety Carvedilol (Coreg) 3.125 mg PO BID-[facility] Last Admin: 04/15/19 08:25 Dose: Not Given Furosemide (Lasix) 40 mg SLOW IVP DAILY [facility] Last Admin: 04/15/19 08:35 Dose: 40 mg Heparin Sodium (Porcine) (Heparin) 5,000 units SC BID [facility] Last Admin: 04/15/19 08:35 Dose: 5,000 units Ceftriaxone Sodium 2 gm/ (Sodium Chloride) 100 mls @ 200 mls/hr IVPB 1700 [facility] Last Admin: 04/14/19 17:07 Dose: 100 mls Clindamycin Phosphate/Dextrose (900 mg/ Device) 50 mls @ 100 mls/hr IVPB 0200, 1000,1800 [facility] Last Admin: 04/15/19 10:52 Dose: 50 mls Vancomycin HCl 1.25 gm/ Sodium (Chloride) 250 mls @ 166.667 mls/hr IVPB Q24HR@ 2000 [facility] Last Admin: 04/14/19 20:55 Dose: 250 mls Miscellaneous Medication (Pharmacy To Dose) 1 each IVPB PRN PRN PRN Reason: Pharmacy to dose Nicotine (Nicoderm Patch) 14 mg TD Q24HR [facility] Last Admin: 04/14/19 20:55 Dose: Not Given Ondansetron HCl (Zofran) 4 mg IVP Q6H PRN PRN Reason: Nausea/Vomiting Sodium Chloride (Flush - Normal Saline) 10 ml IVF Q12HR [facility] Last Admin: 04/15/19 08:35 Dose: 10 ml Sodium Chloride (Flush - Normal Saline) 10 ml IVF PRN PRN PRN Reason: Saline Flush Vital Signs & Weight: Vital Signs Temp Pulse Pulse BP BP Pulse Ox Pulse Ox 04/15/19 09:04 93 103 H 108/70 96/54 L 97 98 04/15/19 07:16 98.7 F 04/15/19 04:20 97.6 F 04/15/19 00:00 97.4 F L Admit Weight 164 lb 15.903 oz Weight 164 lb 15.903 oz - Physical Exam General: alert & oriented x3 HEENT: mucus membranes moist Neck: supple neck Cardiac: regular rate and rhythm, S1/S2 Lungs: decreased breath sounds Neuro: cranial nerve 2-12 intact - Labs Result Diagrams: 04/14/19 07:16 04/14/19 03:30 Troponin/CKMB CK-MB (CK-2) 2.2 ng/mL (0-6.6) 04/10/19 23:48 Troponin I 0.076 ng/mL (< 0.028) H 04/10/19 23:48 - Telemetry Sinus rhythms and dysrhythmias: sinus rhythm - Assessment/Plan Assessment/Plan: 1. Ischemic CMY with EF 25-30% - 2. Ulcerated right chest wall mass possible 2/2 metastatic breast cancer - on ABX IVs; managed by ID. 3. Mod Rt Pleural effusion with s/p diagnostic thoracentesison 04/12/2019 by pulmonology - On Lasix IV; 4. RUE nonocclusive brachial vein DVT. hold anticoagulation for now until surgical evaluation complete 5. Chronic Systolic HF - stable; on Lasix and Coreg; will start SVETA/ARB with stable VS 6. CAD with hx of stent in RCA in 2000 - On Heparin; on Coreg; . 7. HTN - hypotensive 8. Non-occlsive Rt arm DVT 9. Severe MR 10. current smoker - smoking cessation education given to the pt MAR reviewed * Echo in 03/2019 with EF 25-30%, mod-severe dilated LA, severe MR, and mild TR
--- NOTE | 2019-04-15 13:13 | PDOC.EVN ---
Event Note - Event Note Event Note: [id number] progress
--- NOTE | 2019-04-15 13:32 | PRG ---
DATE OF SERVICE: 04/15/2019 SUBJECTIVE: The patient is being followed for shortness of breath, possible sepsis; chest wall mass ulceration, biopsy, pending, concerning for malignancy. The patient was seen at the bedside. Family at the bedside. Blood pressure remains on the low side, but overall the patient is feeling better. PHYSICAL EXAMINATION: GENERAL: The patient is awake, alert, does not appear to be in acute distress. VITAL SIGNS: Blood pressure is 100/60, pulse is 88, temperature 98.7, pulse oximetry 99%, and respiratory rate is 16. HEAD AND NECK: Normocephalic and atraumatic. NECK: Supple. CHEST: Few bibasilar crackles. HEART: S1 and S2, regular. ABDOMEN: Soft and nontender. Bowel sounds present. NEUROLOGIC: The patient is awake, alert, and oriented. PSYCHIATRIC: Unable to assess. EXTREMITIES: No clubbing or cyanosis. REVIEW OF SYSTEMS: Review of 14 systems negative except for what is mentioned above. MEDICATIONS: Reviewed. ASSESSMENT/PLAN: 1. Ulcerated right chest wall mass concerning for metastatic breast cancer, status post surgical biopsy. Status post diagnosis of thoracentesis by Pulmonary. Pathology still pending. 2. Possible sepsis. 3. Cultures positive for Proteus species. The patient is currently on IV Rocephin, vancomycin, and clindamycin, Infectious Disease is consulted. 4. Congestive heart failure, possibly exacerbation. The patient has been on Lasix, but it has been on hold because of low blood pressure. 5. Right pleural effusion, possible malignancy, status post diagnostic thoracentesis, awaiting pathology. 6. Lactic acidosis, resolved. 7. Right upper extremity nonocclusive brachial vein thrombosis. Anticoagulation has been on hold. Surgical evaluation completed. 8. Coronary artery disease with stenting. 9. History of hypertension. Blood pressure is in the low side. 10. Deconditioning. PT and OT consult. 11. Deep venous thrombosis prophylaxis as appropriate. CODE STATUS: The patient is full code. Case is discussed with the patient and family. Job ID: [id number]
[2019-04-15] MEDS: cefTRIAXone\\ROCEPHIN 2 GM in Sodium Chloride 0.9% 100 ML IVPB SCH (17:42)
[2019-04-15] MEDS: Vancomycin HCl 1.25 GM in Sodium Chloride 0.9% 250 ML 250 ML IVPB SCH (20:26)
[2019-04-15] MEDS: Nicotine 14 MG PATCH TD SCH (20:29)
[2019-04-15] MEDS: ALPRAZolam 0.25 MG TAB PO PRN (23:51)
[2019-04-16] MEDS: Clindamycin/D5W 900 MG in Premix Bag 1 BAG IVPB SCH ×3 (01:53→17:22)
[2019-04-16] MEDS: Heparin 5,000 UNITS/ML VIAL SC SCH ×2 (08:50→20:22)
[2019-04-16] MEDS: Carvedilol 3.125 MG TAB PO SCH ×2 (08:53→17:23)
[2019-04-16] MEDS: Furosemide 40 MG/4 ML VIAL SLOW IVP SCH (08:53)
[2019-04-16] MEDS: HYDROcodone/Acetaminophen 7.5/325 mg Tablet PO PRN ×2 (09:00→20:21)
[2019-04-16] MEDS: ALPRAZolam 0.25 MG TAB PO PRN ×2 (09:36→20:22)
--- NOTE | 2019-04-16 12:42 | PDOC.EVN ---
Event Note - Event Note Event Note: [id number] progress
--- NOTE | 2019-04-16 13:57 | PRG ---
DATE OF SERVICE: 04/16/2019 Pathology report for chest wall biopsy came back positive for invasive ductal carcinoma. SUBJECTIVE: The patient is feeling okay. Denies any new complaints. Family at the bedside. PHYSICAL EXAMINATION: GENERAL: The patient is awake, alert, does not appear to be in acute distress. VITAL SIGNS: Blood pressure 129/65, temperature is 97.2, pulse oximetry 97%, heart rate is 90, respiratory rate is 16. HEAD AND NECK: Normocephalic and atraumatic. Neck is supple. CHEST: Fair bilateral entry. HEART: S1 and S2. Regular. ABDOMEN: Soft, nontender. Bowel sounds are present. NEUROLOGIC: Awake, alert, and oriented x3. PSYCH: Normal mood. EXTREMITIES: No clubbing or cyanosis. DIAGNOSTIC STUDIES: Pathology of the chest wall biopsy came back positive for invasive ductal carcinoma. Pleural fluid cytology negative for malignant cells. ASSESSMENT AND PLAN: 1. Invasive ductal carcinoma. 2. Possible sepsis. 3. Cultures were positive for Proteus species. The patient currently on IV antibiotics. 4. Congestive heart failure with possible exacerbation. Continue with diuresis if blood pressure permits. 5. Right pleural effusion. Postop diagnostic thoracentesis, cytology negative for malignant cells. 6. Lactic acidosis, resolved. 7. Right upper extremity nonocclusive brachial vein thrombosis. Anticoagulation has been on hold, awaiting completion of surgical evaluation. 8. Coronary artery disease with stenting. 9. History of hypertension, blood pressure has been on the low side. 10. Deconditioning. PT and OT consult. 11. Deep venous thrombosis prophylaxis appropriate. PLAN: 1. Continue with the current management. 2. We will consult Oncology for evaluation and further recommendations. 3. ___Discussed with patiet and family regarding pathology report results , which was positive for invasive ductal carcinoma. The case was discussed with the patient and family, explained and notified the patient and family regarding the pathology results. Job ID: [id number] MTDD
[2019-04-16] MEDS: cefTRIAXone\\ROCEPHIN 2 GM in Sodium Chloride 0.9% 100 ML IVPB SCH (17:22)
[2019-04-16 19:40] LABS: Vancomycin, Trough 15.5 ug/mL
[2019-04-16] MEDS: Vancomycin HCl 1.25 GM in Sodium Chloride 0.9% 250 ML 250 ML IVPB SCH (20:21)
[2019-04-16] MEDS: Nicotine 14 MG PATCH TD SCH (20:57)
[2019-04-17] MEDS: Clindamycin/D5W 900 MG in Premix Bag 1 BAG IVPB SCH ×2 (01:30→11:40)
[2019-04-17 08:03] VITALS: BP 95/55
[2019-04-17] MEDS: ALPRAZolam 0.25 MG TAB PO PRN (08:38)
[2019-04-17] MEDS: HYDROcodone/Acetaminophen 7.5/325 mg Tablet PO PRN (09:25)
[2019-04-17] MEDS: Carvedilol 3.125 MG TAB PO SCH (09:25)
[2019-04-17] MEDS: Furosemide 40 MG/4 ML VIAL SLOW IVP SCH (09:26)
[2019-04-17] MEDS: Heparin 5,000 UNITS/ML VIAL SC SCH (09:26)
[2019-04-17] MEDS ORDERED: Morphine 4 MG/ML VIAL SLOW IVP SCH (10:15)
--- NOTE | 2019-04-17 11:13 | RAD ---
PORTABLE CHEST ONE VIEW: 04/17/2019 11:07 a.m. HISTORY: Respiratory distress. COMPARISON: 04/10/2019 FINDINGS: The heart size is enlarged. There is pulmonary vascular congestion. Dense opacity in the right perihi lar region and in the right lung base is again seen. No pneumothoraces are identified. There is pulmo nary vascular congestion. POS: [facility]
[2019-04-17] MEDS ORDERED: Potassium Chloride 40 MEQ in Sodium Chloride 0.9% 250 ML 250 ML IVPB SCH (11:30)
[2019-04-17 11:43] LABS: #Eosinphils 0.1 thou/uL (0.0-0.7); #Lymphocytes 0.5 thou/uL (1.20-3.40); #Monocytes 0.8 thou/uL (0.11-0.59); %Basophils 0.4 % (0.0-1.0); %Lymphocytes 4.9 % (21.0-51.0); %Monocytes 7.5 % (0.0-10.0); %Neutrophils 86.2 % (42.0-75.0); Hemoglobin 9.6 g/dL (12.0-16.0); Mean Corpuscular HGB CONC 31.2 g/dL (32.0-36.0); Mean Corpuscular Volume 89.8 fL (78.0-98.0); Mean Platelet Volume 8.1 fL (7.4-10.4); Platelet Count 275 thou/uL (130-400); RBC Distribution Width 14.6 % (11.5-14.5); Red Blood Cell (RBC) Count 3.43 mill/uL (4.20-5.40); White Blood Cell (WBC) Count 10.4 thou/uL (4.8-10.8)
[2019-04-17 11:58] LABS: Actual Bicarbonate (HCO3a) 29.2 mEq/L (22-28); Base Excess (BEa) 2.8 mEq/L (-2.0 to +3.0); CO2 Tension 54.6 mmHg (35.0-45.0); Calcium, Ionized 1.16 mmol/L (1.12-1.30); Carboxyhemoglobin (COHb) 1.2 gm% (0.0-3.0); Hemoglobin (Hb) 9.7 g/dL (12.0-16.0); O2 Tension (PaO2) 73.8 mmHg (> 70.0); Potassium - ABG Lab 4.07 mmol/L (3.70-5.30); pH, Arterial 7.35 (7.35-7.45)
[2019-04-17 11:59] LABS: Puncture Site LRA
[2019-04-17 12:04] LABS: ALT (SGPT) 8 U/L (8-55); AST (SGOT) 18 U/L (5-34); Alkaline Phosphatase 59 U/L (40-110); Anion Gap 12 mmol/L (10-20); BUN (Urea Nitrogen) 15 mg/dL (9.8-20.1); Bilirubin, Total 0.2 mg/dL (0.2-1.2); Calc. Creatinine Clearance 70 mL/min (70-130); Calcium 8.9 mg/dL (7.8-10.44); Carbon Dioxide 28 mmol/L (23-31); Chloride 102 mmol/L (98-107); Estimated GFR-MDRD 65; Globulin 3.8 g/dL (2.4-3.5); Glucose 128 mg/dL (83-110); Potassium 3.9 mmol/L (3.5-5.1); Protein, Total 6.8 g/dL (6.0-8.3); Sodium 138 mmol/L (136-145)
[2019-04-17 12:26] LABS: CKMB 1.4 ng/mL (0-6.6)
[2019-04-17] MEDS ORDERED: Morphine 4 MG/ML VIAL SLOW IVP PRN (13:28)
[2019-04-17] MEDS ORDERED: Lorazepam 2 MG/ML VIAL SLOW IVP PRN (13:29)
[2019-04-17] MEDS: Morphine 2 MG/ML SYRINGE SLOW IVP PRN ×6 (16:35→23:42)
[2019-04-17] MEDS: Lorazepam 2 MG/ML VIAL SLOW IVP PRN ×6 (16:35→23:44)
[2019-04-17 17:09] VITALS: TEMP 97.4
--- NOTE | 2019-04-17 18:04 | PRG ---
DATE OF SERVICE: 04/17/2019 Rounding for [facility] physicians. HISTORY OF PRESENT ILLNESS: The patient was found to be in acute respiratory distress, worsening throughout the morning hours to the point of not tolerating 4 L nasal cannula and tripoding with visible extracostal muscles used for respirations, unable to speak more than 1 to 2 sentences, and blood pressure ranging around 80 /40. At that point in time, the patient was still full code. Awaiting Oncology recommendations on invasive ductal breast cancer with subsequent pleural effusion. According to the patient and daughter's wish, transferred the patient to the ICU for BiPAP and further evaluation. The patient with known history of congestive heart failure. Review of vital signs on arrival to ICU, temperature of 96.9, heart rate of 95, respiratory rate of 23, oxygen saturation 94%, being placed on BiPAP. Review of prior microbiology on 04/10, coagulase negative Staph and Proteus mirabilis of right breast. Chest x-ray on arrival to ICU reviewed, enlarged heart size, pulmonary vascular congestion present, dense opacity over right perihilar region is continued to be seen during this hospital admission. No pneumothoraces. EKG was performed at bedside on arrival to ICU and reviewed with some elements of ST depression in anterior leads, however, not in three contiguous leads. No formal ST-segment changes. Lab work was drawn arrival to the ICU. White blood cell count of 10.4, hemoglobin of 9.6, blood count of 275. ABG has a pH of 7.35, pCO2 of 54, oxygen of 73% on initiation of BiPAP. Troponin x1 0.062, stable from prior levels reviewed 04/10/2019, 0.076. Albumin of 3.0. AST of 18, ALT of 8. Glucose of 128, creatinine of 0.86, potassium of 3.9, sodium of 138, CO2 of 28. Upon discussions with Critical Care team on reviewing the patient's pathology report and current respiratory status, as well as protein status and gross edematous features of lower extremities as well as evident congestive heart failure exacerbation on top of the patient's pleural effusion and acute respiratory distress with hypercapnia. Decision was made to make patient DNR/DNI and on comfort measures. PHYSICAL EXAMINATION: GENERAL: On BiPAP in the ICU, the patient resting comfortably. HEENT: Head is normocephalic and atraumatic. Extraocular movements are intact. Sclerae are white. Oral mucosa is dry. SKIN: Turgor is normal. HEART: Tachycardic. No murmurs auscultated. LUNGS: Coarse bronchial breath sounds bilaterally. Lower lung bergeron with diminished breath sounds. EXTREMITIES: Lower extremities with 2 to 3+ pitting edema bilaterally. NEUROLOGIC: The patient was alert and oriented x3. No focal deficits. Speech was normal, although as above shorter sentences during respiratory distress episode. No rashes observed of the patient's upper and lower extremities on exam today. ABDOMEN: The patient's abdomen is protuberant, soft, nontender. PSYCHIATRIC: The patient somewhat anxious with flat affect ASSESSMENT/PLAN: Acute on chronic respiratory failure with hypercapnia, invasive ductal carcinoma with associated right pleural effusion, congestive heart failure exacerbation, severe protein malnutrition evident secondary to patient's cancer, coronary artery disease history as above. The patient transitioned to the ICU, made comfortable. Discontinued antibiotics for prior bacteria as above, which included clindamycin, Rocephin, and vancomycin. The patient's temperature was low, but I do not believe the patient is septic on transfer to ICU, was on heparin prophylaxis for upper extremity superficial thrombosis. Given comfort care, we will discontinue additional medications and streamline at this point will include Ativan and morphine. Continue the patient's nicotine patch for comfort. Palliative Care has been consulted. Given the patient's hypotension, discontinue Coreg. We will be happy to work with Critical Care and Family Medicine for any additional comfort medications. Additional family members will be arriving here this afternoon and the patient has been asking to take off BiPAP. Discussed with daughter at bedside, another family member that given how tired the patient was this morning, she may not last more than 24 to 48 hours given her current respiratory status. Critical care time 1 hour with greater than half spent [id number]. Job ID: [id number] [facility]
[2019-04-17] MEDS: Nicotine 14 MG PATCH TD SCH (21:24)
[2019-04-18] MEDS: Lorazepam 2 MG/ML VIAL SLOW IVP PRN ×15 (00:12→05:53)
[2019-04-18] MEDS: Morphine 2 MG/ML SYRINGE SLOW IVP PRN ×10 (00:12→04:04)
[2019-04-18] MEDS: Morphine 4 MG/ML VIAL SLOW IVP PRN ×5 (04:24→05:53)
--- NOTE | 2019-04-19 11:28 | PRG ---
DATE OF SERVICE: 04/17/2019 SERVICE: Pulmonary Medicine. INTERVAL HISTORY: Overnight, the patient had increasing respiratory difficulties. Her blood pressures have fallen off a little bit. She cannot provide much in the way of interval history. She currently has significant dyspnea. She was transitioned to the ICU. I got a phone call to address her. Typically, the patient's heart rate is running between 94 and 100, but her heart rate has jumped up to the 140s. PHYSICAL EXAMINATION: VITAL SIGNS: Afebrile, pulse 94, blood pressure 90/40, respirations 25, saturation 97% on 2 L nasal cannula. HEENT: Normocephalic and atraumatic. Sclerae are white. Conjunctivae are pink. Oral mucosa is moist without lesions. LUNGS: Decent air entry. There is some crackling present, but not much. HEART: Normal rate. Regular. ABDOMEN: Soft, nontender, and nondistended. Bowel sounds are positive. MUSCULOSKELETAL: No cyanosis or clubbing. Pitting edema has significantly improved. NEUROLOGIC: Grossly nonfocal. LABORATORY DATA: WBC 6.9, hemoglobin 9.7, platelets 260,000. Basic metabolic profile is essentially unremarkable with a potassium of 3.8. Urinalysis is unremarkable. IMAGING STUDIES: Chest x-ray demonstrates pleural effusion and possible opacification in the right lung base. The left lung appears to be relatively stable and/or clear. Overall, this seems to be increasing pulmonary vascular congestion. ASSESSMENT: 1. Acute hypoxic respiratory failure, recurring. 2. Pleural effusion, transudative on the right. 3. Community-acquired pneumonia, possible. 4. Breast cancer, metastatic. DISCUSSION AND PLAN: I have titrated the BiPAP at bedside. We will look with an ultrasound to see whether or not there is a large pocket of fluid on the right again. If this is recurred, thoracentesis will be considered. I am working on getting better rate control. Pulmonary/Critical Care will follow closely. Critical care time: 30 minutes. Job ID: [id number] MTDD
--- NOTE | 2019-04-19 14:02 | DIS ---
DATE OF ADMISSION: 04/10/2019 DATE OF DISCHARGE: 04/18/2019 DATE OF EXPIRATION: 04/18/2019. HOSPITAL COURSE: The patient was initially admitted with discharge and swelling from wound around the breast, which was worsening on an outpatient basis over approximately a month. The patient with past medical history including coronary artery disease, hypertension, hyperlipidemia, tobacco abuse. Given ulcerating area near the right axilla, the patient was admitted to the hospital, started on antibiotics. The patient's general appearance with lower extremity edema and subsequent near anasarca, but given the patient's possible infection, IV fluids were started. Pulmonology was consulted as the area was suspicious for breast cancer with possible invasion of right lung with findings of pleural effusion, later confirmed transudative via thoracentesis and cytology. Echocardiogram was performed. The patient's ejection fraction was 25% to 30%, confirming systolic heart failure yielding Cardiology consultation by the patient's outpatient industrial coffee grinder, Dr. Hagen. The patient remained hypotensive largely throughout stay and in respiratory distress. Later findings of intraductal carcinoma from the breast on pathology report from right breast ulceration that was taken at time of thoracentesis, I believe Cancer Team was consulted but did not see the patient. The patient was moved Oncology Floor, however, decompensated from a respiratory status. She was noted to have extremely low albumin consistent with severe protein malnutrition, continued with large right pleural effusion and lower extremity edema. The patient being tripoding with respiratory distress. Given metastatic breast cancer cause of worsening respiratory distress, Dr. Iyer spoke with the patient and the patient's daughter. They agree to make her a DNR/DNI and comfort care. Antibiotics and life extending measures for patient's CHF including ARB, beta-akbar, etc., were held and also discontinued secondary to hypotension as well as comfort care measures. The patient was started on morphine and benzodiazepines for comfort and once additional family members got there late on the , the patient discontinued BiPAP and was only able to have the strength to continue breathing until the morning and passed around 0623 at time of reported by nursing staff at bedside. Job ID: [id number]
== END 2019-04-18 06:23 | disposition expired | DRG 597 ==
LOC: ERS 16:50 → ERHOLD 20:57 → IMCU/EMU 04-11 15:45 → ONC 04-16 20:07 → CCU 04-17 10:27
PROVIDERS: ADMIT Internal Medicine; ATTEND Internal Medicine
PROC: 0W993ZZ Drainage of Right Pleural Cavity, Percutaneous Approach (ICD-10-PCS; principal; 2019-04-12)
PROC: 5A09357 Assistance with Respiratory Ventilation, Less than 24 Consecutive Hours, Continuous Positive Airway Pressure (ICD-10-PCS; 2019-04-17)
DX: C50.911 Malignant neoplasm of unspecified site of right female breast (principal); J18.9 Pneumonia, unspecified organism; I50.23 Acute on chronic systolic (congestive) heart failure; E43 Unspecified severe protein-calorie malnutrition; J96.21 Acute and chronic respiratory failure with hypoxia; E87.2 Acidosis; I82.621 Acute embolism and thrombosis of deep veins of right upper extremity; J91.8 Pleural effusion in other conditions classified elsewhere; Z66 Do not resuscitate; R53.81 Other malaise; Z51.5 Encounter for palliative care; D64.9 Anemia, unspecified; I25.10 Atherosclerotic heart disease of native coronary artery without angina pectoris; E78.5 Hyperlipidemia, unspecified; F17.210 Nicotine dependence, cigarettes, uncomplicated; I49.3 Ventricular premature depolarization; I89.0 Lymphedema, not elsewhere classified; E78.00 Pure hypercholesterolemia, unspecified; I11.0 Hypertensive heart disease with heart failure; I25.5 Ischemic cardiomyopathy; Z95.5 Presence of coronary angioplasty implant and graft; I25.2 Old myocardial infarction; Z71.6 Tobacco abuse counseling
CPT/HCPCS: 36415; 36416; 51702; 71045; 71260; 74177; 80048; 80053; 80202; 81003; 81015; 82553; 82805; 82945; 83605; 83615; 83735; 83880; 84100; 84157; 84484; 85025; 85060; 86140; 87040; 87070; 87077; 87086; 87116; 87149; 87186; 87205; 87206; 88112; 88305; 88341; 88342; 88361; 89051; 93005; 93010; 93306; 93970; 94660; 96361; 96365; 96366; 96367; J0696; J1644; J1720; J1940; J2060; J2270; J3370; J3480; J3490; J7050; Q9967